=== PATIENT | female | born 1970 | race Caucasian/White ===

== ENCOUNTER 2016-12-22 21:28 | Emergency (ER) | payer OTHER ==
[~2016-12-22] VITALS: Ht 165.1 cm; Wt 65.0 kg
[~2016-12-22 21:28] MED LIST: NOHOMEMEDS; OMEPRAZOLE40 M1 PO
[2016-12-23 01:11] VITALS: BP 146/77
== END 2016-12-23 01:11 | disposition home or self-care (01) ==
LOC: EME 21:28
DX: S00.11XA Contusion of right eyelid and periocular area, initial encounter (principal); W22.8XXA Striking against or struck by other objects, initial encounter; F17.200 Nicotine dependence, unspecified, uncomplicated
CPT/HCPCS: 70486; 99281; 99283